=== PATIENT | female | born 2000 | race Caucasian/White ===

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

== ENCOUNTER 2020-11-23 07:49 | Emergency (ER) | payer MEDICARE, OTHER ==
[2020-11-23 07:53] VITALS: TEMP 98
[2020-11-23] MEDS ORDERED: diphenhydrAMINE 50 MG/ML 1 ML VIAL IVP STA ×2 (07:59→08:35)
[2020-11-23] MEDS ORDERED: METOCLOPRAMIDE 5 MG/ML 2 ML VIAL IVP STA (08:00)
--- NOTE | 2020-11-23 08:16 | ED ---
General Adult HPI - General Chief complaint: Headache Stated complaint: headaches Time Seen by Provider: 11/23/20 07:54 Source: patient, RN notes reviewed Mode of arrival: ambulatory Limitations: no limitations - History of Present Illness Initial comments: This is a 20-year-old female presents emergency Department chief complaint of ongoing headaches. She states she's been having almost daily headaches for last several weeks to months. Patient states that they are variant in location she is currently she has bilateral headache. Patient denies any visual disturbances time but she's had some blurred vision, nausea vomiting associated. No neck pain no trauma does not take any current medications. Patient denies any chance - Related Data Home Medications Medication Instructions Recorded Confirmed Acetaminophen [Tylenol Extra 500 mg PO TID PRN 06/03/18 11/23/20 Strength] Allergies Allergy/AdvReac Type Severity Reaction Status Date / Time No Known Allergies Allergy Verified 11/23/20 07:53 Review of Systems ROS Statement: Those systems with pertinent positive or pertinent negative responses have been documented in the HPI. ROS Other: All systems not noted in ROS Statement are negative. Past Medical History Past Medical History: No Reported History History of Any Multi-Drug Resistant Organisms: None Reported Past Surgical History: No Surgical Hx Reported Past Anesthesia/Blood Transfusion Reactions: No Reported Reaction Past Psychological History: No Psychological Hx Reported Smoking Status: Never smoker Past Alcohol Use History: None Reported Past Drug Use History: Marijuana - Past Family History Father Family Medical History: Congestive Heart Failure (CHF), Hypertension Mother Family Medical History: Cancer, Hyperlipidemia, Hypertension General Exam Limitations: no limitations General appearance: alert, in no apparent distress Head exam: Present: atraumatic, normocephalic, normal inspection Eye exam: Present: normal appearance, PERRL, EOMI. Absent: scleral icterus, conjunctival injection, periorbital swelling ENT exam: Present: normal exam, normal oropharynx, mucous membranes moist Neck exam: Present: normal inspection, full ROM. Absent: tenderness, meningismus, lymphadenopathy Respiratory exam: Present: normal lung sounds bilaterally. Absent: respiratory distress, wheezes, rales, rhonchi, stridor Cardiovascular Exam: Present: regular rate, normal rhythm, normal heart sounds. Absent: systolic murmur, diastolic murmur, rubs, gallop, clicks Neurological exam: Present: alert, oriented X3, CN II-XII intact, reflexes normal. Absent: motor sensory deficit Skin exam: Present: warm, dry, intact, normal color. Absent: rash Course Vital Signs 11/23/20 11/23/20 07:50 08:53 Temperature 98.0 F Pulse Rate 61 63 Respiratory 16 18 Rate Blood Pressure 132/80 120/71 O2 Sat by Pulse 98 100 Oximetry Medical Decision Making - Medical Decision Making CT shows some calcification no acute bleed as read by radiologist's. Patient's will follow-up with neurology patient does feel improved after migraine cocktail. Disposition Clinical Impression: Frequent headaches Disposition: HOME SELF-CARE Condition: Stable Instructions (If sedation given, give patient instructions): Acute Headache (ED) Additional Instructions: Please return to the Emergency Department if symptoms worsen or any other concerns. Is patient prescribed a controlled substance at d/c from ED?: No Referrals: None,Stated [Primary Care Provider] - 1-2 days Kayla Gross MD [REFERRING] - 1-2 days Elmer Gonsalez DO [STAFF PHYSICIAN] - 1-2 days Kaleigh Celestin MD [Medical Doctor] - 1-2 days Time of Disposition: 09:23
[2020-11-23] MEDS: KETOROLAC 15 MG/ML 1 ML VIAL IVP STA ×2 (08:17→08:58)
--- NOTE | 2020-11-23 08:19 | CT ---
EXAMINATION TYPE: CT brain wo con DATE OF EXAM: 11/23/2020 COMPARISON: None. HISTORY: Frequent CHANEY CT DLP: 1028.4 mGycm. Automated Exposure Control for Dose Reduction was Utilized. TECHNIQUE: CT scan of the head is performed without contrast. FINDINGS: Curvilinear density left frontal region favors dystrophic calcification possibly from mark te infection is more dense than acute hemorrhage and atypical location and appearance. Clinical corre lation and correlation with old outside imaging would be beneficial if it is present. There is no acu te intracranial hemorrhage, mass effect, or midline shift identified. The ventricles and sulci are within normal limits in size. Mcgee-white matter differentiation is maintained. The globes are intact and the visualized sinuses are clear. IMPRESSION: As above.
[2020-11-23 09:04] VITALS: RESP 18
[2020-11-23 09:31] VITALS: BP 120/74; PULSE 70
== END 2020-11-23 09:30 | disposition home or self-care (01) ==
LOC: EC 07:49
DX: R51.9 Headache, unspecified (principal); F12.90 Cannabis use, unspecified, uncomplicated; Z82.49 Family history of ischemic heart disease and other diseases of the circulatory system; Z83.49 Family history of other endocrine, nutritional and metabolic diseases
CPT/HCPCS: 70450; 99284; J1200; J2765; J1885

== ENCOUNTER → 2021-02-01 | Outpatient (CLI) | payer OTHER ==
--- NOTE | 2021-02-01 18:19 | MR ---
EXAMINATION TYPE: MR brain wo con DATE OF EXAM: 02/01/2021 COMPARISON: None HISTORY: Migraine Multiplanar multiecho imaging of the brain without contrast. Ventricles and sulci appear normal. There is no mass effect nor midline shift. There is no sign of in tracranial hemorrhage. Corpus callosum appears normal. Brainstem is intact. There is no evidence of cerebral edema. Optic ch iasm appears normal. Sella turcica appears normal. Diffusion images show no evidence of an acute infa rct. Mcgee-white matter structures have normal signal pattern. There is no evidence of cerebral edema. IMPRESSION: Normal unenhanced MR scan of the brain.
== END ==
LOC: RADMRIMAIN 10:32
PROVIDERS: ATTEND Psychiatry & Neurology Neurology
DX: G43.909 Migraine, unspecified, not intractable, without status migrainosus (principal)
CPT/HCPCS: 70551

== ENCOUNTER 2021-04-01 10:15 | Emergency (ER) | payer OTHER ==
[2021-04-01] MEDS ORDERED: KETOROLAC 30 MG/ML 1 ML VIAL IVP STA (10:39)
[2021-04-01] MEDS ORDERED: diphenhydrAMINE 50 MG/ML 1 ML VIAL IVP STA (10:39)
[2021-04-01] MEDS ORDERED: ONDANSETRON 4 MG/2 ML VIAL IVP STA (10:39)
[2021-04-01] MEDS ORDERED: SODIUM CHLORIDE 0.9% 1,000 ML IV STA (10:39)
--- NOTE | 2021-04-01 10:42 | ED ---
General Adult HPI - General Chief complaint: Headache Stated complaint: migraine Time Seen by Provider: 04/01/21 10:24 Source: patient Mode of arrival: ambulatory Limitations: no limitations - History of Present Illness Initial comments: Dictation was produced using [employer] dictation software. please excuse any grammatical, word or spelling errors. Chief Complaint: Patient is 20-year-old feel past medical history migraines presents with headaches History of Present Illness: To 20-year-old female she has past medical history of migraine disorder. She sees a headache specialist. Patient states she's been suffering for headache since this morning. Patient gets headaches at least monthly. Her headache she is to be more frequent prior to when she started taking Topamax. Patient denies any obvious stressor or precipitating factor of her headache this time. Patient has been emergency department for headache treatment in the past. She states she's had successful treatment with headache cocktail. Patient denies . Denies any other medical point set this time. She states that the headache starts at her neck and goes all the way to her frontal area. As a numbness and no paresthesias. The ROS documented in this emergency department record has been reviewed and confirmed by me. Those systems with pertinent positive or negative responses have been documented in the HPI. All other systems are other negative and/or noncontributory. PHYSICAL EXAM: General Impression: Alert and oriented x3, not in acute distress HEENT: Normocephalic atraumatic, extra-ocular movements intact, pupils equal and reactive to light bilaterally, mucous membranes moist. Cardiovascular: Heart regular rate and rhythm Chest: Able to complete full sentences, no retractions, no tachypnea Abdomen: abdomen soft, non-tender, non-distended, no organomegaly Musculoskeletal: Pulses present and equal in all extremities, no peripheral edema Motor: no focal deficits noted Neurological: CN II-XII grossly intact, no focal motor or sensory deficits noted Skin: Intact with no visualized rashes Psych: Normal affect and mood ED course: 20 yo well-appearing female with past medical history of migraine disorder presents emergency department for headache. Patient has no high-risk features. She has established diagnosis of migraine disorder. Vital signs upon arrival are within acceptable limits. Chart review was performed per she had an MRI performed in January of last month that was unremarkable. Patient given headache cocktail. Urine. See test is negative. Patient evaluated at bedside at 12:13 PM with almost complete resolution of her headache symptoms. Patient is agreeable for discharge. She is advised follow-up with her headache specialist. - Related Data Home Medications Medication Instructions Recorded Confirmed Topiramate [Topamax] 25 mg PO DAILY 04/01/21 04/01/21 Allergies Allergy/AdvReac Type Severity Reaction Status Date / Time No Known Allergies Allergy Verified 04/01/21 10:57 Review of Systems ROS Statement: Those systems with pertinent positive or pertinent negative responses have been documented in the HPI. ROS Other: All systems not noted in ROS Statement are negative. Past Medical History Past Medical History: No Reported History History of Any Multi-Drug Resistant Organisms: None Reported Past Surgical History: No Surgical Hx Reported Past Anesthesia/Blood Transfusion Reactions: No Reported Reaction Past Psychological History: No Psychological Hx Reported Smoking Status: Never smoker Past Alcohol Use History: None Reported Past Drug Use History: Marijuana - Past Family History Father Family Medical History: Congestive Heart Failure (CHF), Hypertension Mother Family Medical History: Cancer, Hyperlipidemia, Hypertension General Exam Limitations: no limitations Course Vital Signs 04/01/21 04/01/21 10:17 10:42 Temperature 98.5 F 97.4 F L Pulse Rate 53 L 52 L Respiratory 18 14 Rate Blood Pressure 135/74 110/78 O2 Sat by Pulse 97 95 Oximetry Medical Decision Making - Lab Data Lab Results 04/01/21 Range/Units 11:00 Urine HCG, Qual Not Detected (Not Detectd) Disposition Clinical Impression: Migraine Disposition: HOME SELF-CARE Condition: Fair Instructions (If sedation given, give patient instructions): Acute Headache (ED) Is patient prescribed a controlled substance at d/c from ED?: No Referrals: None,Stated [Primary Care Provider] - 1-2 days
[2021-04-01 10:51] VITALS: TEMP 97.4
[2021-04-01 12:26] VITALS: BP 107/61; PULSE 55; RESP 18
== END 2021-04-01 12:26 | disposition home or self-care (01) ==
LOC: EC 10:15
DX: G43.909 Migraine, unspecified, not intractable, without status migrainosus (principal); F12.90 Cannabis use, unspecified, uncomplicated
CPT/HCPCS: 99284; 96374; 96375 ×2; 96361; 81025; J1200; J2405; J1885

== ENCOUNTER → 2021-07-24 | Outpatient (CLI) | payer OTHER ==
--- NOTE | 2021-07-24 08:40 | P.CON ---
Consult Note - . Consult date: 07/24/21 Assessment/Plan:: HISTORY OF PRESENT ILLNESS: 21 yr old female as a referral from Dr Renato Garza presents today with chronic & severe headaches over a course of one year for evaluation. Patient states the pain is 3 out of 10 in intensity, localized in the base of her head and neck region with radiation of throbbing, sharp, shooting pain of the scalp and into the 4 head. Pain escalates as high as 10 out of 10 in intensity when the patient is stressed. Patient states she is a mother to a toddler. Pain is relieved with medications (Motrin OTC, Advil OTC), cannabis use, home stretching regimen, laying supine in a dark and quiet room and rest. Past Medical History: No Reported History Past Surgical History: No Surgical Hx Reported Social History: Never smoker, No ETOH abuse, +Cannabis use. Mother to a toddler daughter. Family History: Father- CHF, HTN. Mother- CA, HTN, Hyperlipidemia All: NKDA Meds: See list REVIEW OF ORGAN SYSTEMS: CONSTITUTIONAL: No fevers or chills. No recent weight loss. HEENT: No visual acuity loss, eye pain, difficulties with hearing. No nosebleeds. No difficulty swallowing. RESPIRATORY: Denies any troubles with breathing or dyspnea on exertion. CARDIOVASCULAR: Denies any chest pain, palpitations, or recent heart attacks. GASTROINTESTINAL: Denies fatty food intolerance. Has change in bowel habits and gas bloat. GENITOURINARY: Denies any blood in urine. Has increased urinary frequency. NEUROLOGICAL: + numbness and tingling along the distal ext remities. No seizure disorders or headaches. MUSCULOSKELETAL: + back pain SKIN: No skin cancer. No rash. PSYCHIATRIC: Denies current depression or suicidal thoughts. ENDOCRINE: Denies current thyroid disorders. Denies any blood sugar glucose intolerance. HEME/LYMPHATIC: Denies any lumps and bumps around the neck. History of deep venous thrombosis. ALLERGY/IMMUNOLOGY: No immunoglobulin therapy. No immune deficiencies. BREAST: Denies current breast lumps, pain or nipple discharge. Physical Examinations : Constitutional : Cooperative , not in acute distress . HEENT: Neck supple. No Lymphadenopathy. Normal thyroid size . +G.O.N. & L.O.N. TTP Eyes no ptosis , no icterus, no photophobia . Hearing intact. Normal oropharynx. No Thrush. Respiratory : Chest clear to auscultations bilaterally. No wheezing. No rhonchi. Cardiovascular : Regular rate and rhythm , S1 / S2. No S3 . No S4. Gastrointestinal : Abdomen soft. No tenderness. Bowel sounds x 4. No organomegaly . Genitourinary : Deferred. Neurologic : Cranial nerve II to XII intact. No focal neurological deficits. Psychiatric : alert & oriented x 3. Matching mood & appropriate affect. Judgment & insight intact. Lymphatic No Lymphadenopathy. Musculoskeletal : Cervical Spine Motor strength in the deltoid and biceps: Normal right side. Normal Left side Motor strength biceps and the wrist extensors: Normal right side . Normal left side Motor strength in the triceps muscle: Normal right side. Normal left side Deep tendon reflexes: Normal at the biceps. Normal at Brachioradialis. Normal at triceps Cervical facet loading test: positive bilaterally Spurling test: positive bilaterally Neck distraction test: positive bilaterally Gene sign: positive bilaterally Lumbar spine Motor strength lower extremities ,thigh and legs 5/5 Right side , 5/5 Left side Deep tendon reflexes : Normal Knee Jerk. Normal Ankle Jerk Vertebral body tenderness over Lumbar facet Loading Test: positive Right / positive Left Range of motion of the lumbar spine Flexion 30 degrees, extension 10 degrees Straight Leg Raise test: Left/ Right positive at degree Mayra test: positive right / positive left. Severe tenderness over the Sacroiliac joint on the Right / Left sides Gaenslen test: positive bilaterally Seated flexion test: positive bilaterally. Imaging: MRI Brain without contrast from 02/01/21 reviewed. Assessment/ Plan : Bilateral occipital neuralgia Recommendation of bilateral occipital nerve blocks. May need a series of injections, up to 3 within a six-month period, for optimal pain relief. Risks, benefits of procedure discussed and patient verbalized understanding. Denies aspirin or anti- coagulant use or medical history of diabetes. All questions answered. I have spent greater than 50 minutes on patient care today. Dr Harrington was available by phone for the evaluation of this patient. The time was used to review the medical records including relevant urine studies and Prescription history (MAPs), review of the available imaging, evaluation and examination of the patient, coordination of care with the medical staff and if applicable referring physicians, as well as creation of the medical record PQRS Measure Charge Sheet PQRS Narrative: Smoking Status Never smoker Home Medications: Ambulatory Orders Topiramate [Topamax] 25 mg PO DAILY 04/01/21
[2021-07-24 08:41] VITALS: BP 140/67; PULSE 57; RESP 18
== END ==
LOC: PNWHC3 08:12
PROVIDERS: ATTEND Specialist
DX: M54.81 Occipital neuralgia (principal)
CPT/HCPCS: 99211

== ENCOUNTER 2021-08-14 10:38 | Day surgery (SDC) | payer OTHER ==
[2021-08-13 09:37] VITALS: BMI 21.1
[~2021-08-14 10:38] MED LIST: LACTATED RINGERS 1,000 ML IV SCH; LIDOCAINE 1% (10MG/ML) FOR IV START INTRADERMA PRN
[2021-08-14 11:02] VITALS: RESP 16; TEMP 97.6
[2021-08-14] MEDS ORDERED: LIDOCAINE 1% (10MG/ML) FOR IV START INTRADERMA ONE (11:03)
[2021-08-14] MEDS ORDERED: methylPREDNISolone ACETATE 40 MG/ML 1 ML VIAL ONE (11:31)
[2021-08-14] MEDS ORDERED: MIDAZOLAM 2 MG/2 ML VIAL ONE (11:31)
[2021-08-14] MEDS ORDERED: fentaNYL (PF) 50 MCG/ML 2 ML AMP ONE (11:31)
[2021-08-14] MEDS ORDERED: ROPIVACAINE 5MG/ML 20ML VIAL ONE (11:31)
--- NOTE | 2021-08-14 11:44 | P.PCN ---
Date of Procedure: 08/14/21 Procedure(s) Performed: Preoperative diagnoses= 1- Greater occipital neuralgia Postoperative diagnoses= same as preoperative diagnosis. Procedure= Bilateral Greater occipital nerve block Anesthesia= moderate sedation with Versed 1 mg and fentanyl 50 micrograms . Estimated blood loss=minimal. Procedure indication= the patient had a history of severe chronic neck pain ,and headache, diagnosed with occipital neuralgia exam was positive for severe tenderness over the occipital nerve bilaterally, she will be a good candidate occipital nerve block, patient failed conservative management Procedure description= the patient was seen and identified in the preoperative holding area, risks and benefits and alternative of the procedure and possible complications discussed with the patient, and he agreed with the preceding, patient signed the consent, an IV was started, and vital signs were monitored a nd were stable throughout the procedure, patient was placed in the sitting position or table and the neck area was prepped and draped with a sterile fashion, vital signs were closely monitored during the procedure, 25-gauge needle advanced 1 inch lateral to the occipital protuberance on the right side, at the location of the right occipital nerve , then after negative aspiration for heme and CSF and there was no paresthesia during the injection, 5 ml of Robivacaine 0.5% and 40 mg of Depo-Medrol injected after negative aspiration, the needle removed, and the entire same procedure was repeated for the left Greater occipital nerve. Patient tolerated the procedure well without any complication, The patient returned to supine position after the back was cleaned and a Band- Aid applied, the patient transported to recovery room in stable condition and he was monitored for 30 minutes before he was discharged home and then patient was reexamined before going home and patient was discharged in stable condition and patient will follow up with the pain clinic in a few weeks.
[2021-08-14] MEDS ORDERED: IV FLUID CONTINUATION 1,000 ML IV ONE (11:51)
[2021-08-14 12:07] VITALS: BP 129/81; PULSE 48
== END 2021-08-14 12:24 | disposition home or self-care (01) ==
LOC: ORPAIN 10:38
PROVIDERS: ATTEND Specialist
DX: M54.81 Occipital neuralgia (principal)
CPT/HCPCS: 64405; 81025; J2250; J1030; J1040; J3010; J2795; 99152

== ENCOUNTER 2021-09-18 09:43 | Day surgery (SDC) | payer OTHER ==
[2021-09-12 14:23] VITALS: BMI 20.7
[2021-09-18] MEDS ORDERED: LACTATED RINGERS 1,000 ML IV SCH (09:45)
[2021-09-18 10:10] VITALS: RESP 16; TEMP 98.2
[2021-09-18] MEDS ORDERED: MIDAZOLAM 2 MG/2 ML VIAL ONE (10:27)
[2021-09-18] MEDS ORDERED: ROPIVACAINE 5 MG/ML 20 ML AMPULE ONE (10:27)
[2021-09-18] MEDS ORDERED: fentaNYL (PF) 50 MCG/ML 2 ML AMP ONE (10:27)
[2021-09-18] MEDS ORDERED: methylPREDNISolone ACETATE 40 MG/ML 1 ML VIAL ONE (10:27)
--- NOTE | 2021-09-18 10:52 | P.PCN ---
Date of Procedure: 09/18/21 Description of Procedure: PREOPERATIVE DIAGNOSIS: Occipital neuralgia, and headaches POSTOPERATIVE DIAGNOSIS: Occipital neuralgia, and headaches PROCEDURES: Bilateral Greater occipital nerve block SURGEON: Heraclio Felipe ANESTHESIA: Local and IV sedation : Versed 1 mg, and fentanyl 50 g. EBL: None. Specimen removed: None PROCEDURE INDICATIONS: This patient with a history of chronic headaches, and occipital neuralgia. Patient had a previous bilateral greater occipital nerve block with good pain relief . Patient had Patient tried conservative therapy. Came here for intervention management. Procedure and Findings: The patient was seen and examined and written informed consent was obtained after explaining the risks, benefits and alternative of the procedure to the patient. As per patient request for anxiety IV was started in the preoperative holding area for sedation. The patient was positioned in the sitting position with the head slightly flexed and forehead rested on a pillow. By palpation, the right side external occipital protuberance and mastoid process were identified and mid point in between was located. The target point for greater occipital nerve was just medial to the occipital artery pulsation. The skin preparation was done with ChloraPrep X2 and sterile technique was observed throughout the procedure. A 25-guage, 1.5 inch needle was used for the procedure. A 25-gauge 1.5 inch needle was placed vertically downward, bony contact was obtained, negative aspiration was confirmed and 8 ml solution was injected. The needle was redirected little medially and laterally in a fanning fashion and addition medication was injected after negative aspiration. The block solution containing 0.5% preservative-free bupivacaine 7 mL +20 MG of Depo-Medrol. The needle was removed,. Entire procedure repeated on the left side . Needle was removed. Needle puncture sites were cleaned and pressure was applied. The patient tolerated the procedure very well. COMPLICATIONS: None. DISPOSITION / PLANS: The patient was placed in a supine position and transferred to the recovery area in a stable condition for observation and was discharged from the recovery room after meeting discharge criteria. Home discharge instructions given to the patient by the staff. The patient was reexamined prior to discharge. The patient will schedule for follow-up visit with the pain clinic in 4 weeks duration
[2021-09-18 11:11] VITALS: BP 103/66; PULSE 47
== END 2021-09-18 11:33 | disposition home or self-care (01) ==
LOC: ORPAIN 09:43
DX: M54.81 Occipital neuralgia (principal); G89.29 Other chronic pain; Z82.49 Family history of ischemic heart disease and other diseases of the circulatory system; Z85.9 Personal history of malignant neoplasm, unspecified
CPT/HCPCS: 81025; 64405; J2250; J1030; J3010; J2795; 99152

== ENCOUNTER → 2021-10-20 | Outpatient (CLI) | payer OTHER ==
[2021-10-20 10:02] VITALS: BP 119/69; PULSE 70; RESP 18; TEMP 97.6
--- NOTE | 2021-10-20 14:18 | P.PAINPG ---
PQRS Measure Charge Sheet Comment: A 21 yr old female with a history of severe and chronic headaches secondary to BL occipital neuralgia presents today for evaluation s/p BL NANDA injections. Pt states she experienced 70% pain relief x 4 weeks s/p procedure. Pain level is currently at 3/10 in intensity, constant, base of neck, throbbing in character w shooting up towards the scalp. Pain is provoked by hyperextension. Pain is alleviated with home based stretching regimen, cool showers and rest. Interventional pain procedures completed include BL ANNDA Patient denies any side effects of the medication(s), denies excessive drowsiness or sleepiness, denies suicidal ideation and reports that the current pain medication is helping to control the pain and improve activities of daily living. Patient denies any motor or sensory deficits. Patient denies any fever or night sweats, denies any change in the bowel movements or urination. Physical Examination: -Constitutional: Cooperative. Not in acute distress . - Neurologic: Cranial nerve II to XII intact. No focal neurological deficits. - Psychatric: Alert & oriented x 3. Matching mood & appropriate affect. Judgment and insight intact. - Musculoskeletal: Cervical spine: +BL NANDA & CODIE TTP Muscle bulk/ tone/ strength in the bilateral upper extremities normal Vertebral body tenderness to palpation over Spurling test positive Distraction test positive Facet loading test positive Thoracic spine Muscle bulk / tone/ strength in the bilateral paraspinal muscles normal Vertebral body tender to palpation over Facet loading test positive Lumbar spine: Motor bulk/ tone/ strength lower extremities , thigh and legs : 5/5 Deep tendon reflexes : Normal Knee Jerk. Normal Ankle Jerk . Vertebral body tenderness to palpation over Lumbar Facet Loading Test positive Straight Leg Raise: positive at 30 degrees right side/ left side Gaenslen's Test positive Sacral spine : Severe tenderness over the Sacroiliac joint: right side / left side Range of motion: Flexion of the lumbar spine <60 degrees Range of motion: Extension of the lumbar spine <20 degrees Gaenslen's Test positive Robert's Test positive Mayra test: positive right side / left side Thigh Thrust Test Sacral Thrust Test Assessment and plan: Chronic low back pain secondary to lumbar degenerative disc disease , lumbar spondylosis with facet arthropathy without myelopathy Recommendation of BL NANDA/CODIE injections. May need a series, up until RFA, for optimal pain relief. Risks, benefits of procedure discussed and pt verbalized understanding. Denies anticoagulant use or medical history of diabetes. All patient questions answered MAPS reviewed and it was appropriate. I have spent less than 30 minutes on patient care today. Dr Harrington was available by phone for the evaluation of this patient. The time was used to review the medical records including relevant urine studies and Prescription history (MAPs), review of the available imaging, evaluation and examination of the patient, coordination of care with the medical staff and if applicable referring physicians, as well as creation of the medical record PQRS Narrative: Smoking Status Never smoker Hx Alcohol Use (MH) No Home Medications: Ambulatory Orders Acetaminophen [Tylenol Extra Strength] 1 dose PO DIRECTED PRN 08/13/21 Clear & Focus Supplement 1 dose PO DAILY 08/13/21 Controlled Substance Measures - Controlled Substance Measures Is patient prescribed a controlled substance at discharge?: No
== END ==
LOC: PNWHC3 09:45
PROVIDERS: ATTEND Specialist
DX: M51.36 Other intervertebral disc degeneration, lumbar region (principal); M47.816 Spondylosis without myelopathy or radiculopathy, lumbar region; G89.29 Other chronic pain
CPT/HCPCS: 99211

== ENCOUNTER 2021-12-02 08:29 | Day surgery (SDC) | payer OTHER ==
[~2021-12-02 08:29] MED LIST changes: -LIDOCAINE 1% (10MG/ML) FOR IV START INTRADERMA PRN
[2021-12-02 08:54] VITALS: TEMP 98.2
[2021-12-02] MEDS ORDERED: methylPREDNISolone ACETATE 40 MG/ML 1 ML VIAL ONE (09:02)
[2021-12-02] MEDS ORDERED: MIDAZOLAM 2 MG/2 ML VIAL ONE (09:02)
[2021-12-02] MEDS ORDERED: ROPIVACAINE 5 MG/ML 20 ML AMPULE ONE (09:02)
[2021-12-02] MEDS ORDERED: fentaNYL (PF) 50 MCG/ML 2 ML AMP ONE (09:02)
[2021-12-02] MEDS ORDERED: IV FLUID CONTINUATION 1,000 ML IV ONE (09:17)
--- NOTE | 2021-12-02 09:23 | P.PCN ---
Date of Procedure: 12/02/21 Description of Procedure: PREOPERATIVE DIAGNOSIS: Occipital neuralgia, and headaches POSTOPERATIVE DIAGNOSIS: Occipital neuralgia, and headaches PROCEDURES: 1. Bilateral -Greater occipital nerve block 2. Bilateral-lesser occipital nerve block SURGEON: Heraclio Felipe ANESTHESIA: Local and IV sedation : Versed 1 mg, and fentanyl 50 g. EBL: None. Specimen removed: None PROCEDURE INDICATIONS: This patient with a history of chronic headaches, and occipital neuralgia. Patient tried conservative therapy. Came here for intervention management. Procedure and Findings: The patient was seen and examined and written informed consent was obtained after explaining the risks, benefits and alternative of the procedure to the patient. As per patient request for anxiety IV was started in the preoperative holding area for sedation. The patient was positioned in the sitting position with the head slightly flexed and forehead rested on a pillow. By palpation, the external occipital protuberance and mastoid process were identified and mid point in between was located. The target point for greater occipital nerve was just medial to the occipital artery pulsation. The skin preparation was done with ChloraPrep X1 and sterile technique was observed throughout the procedure. A 25-guage, 1.5 inch needle was used for the procedure. On the right side A 25-gauge 1.5 inch needle was placed vertically downward, bony contact was obtained, negative aspiration was confirmed and 7 ml of block solution was injected. The needle was redirected little medially and laterally in a fanning fashion and addition medication was injected after negative aspiration. For lesser occipital nerve the target point just lateral to midpoint between occipital protuberance, and mastoid process was identified. Skin cleaned with ChloraPrep X1. Using a 25- gauge 1.5 inch needle placed vertically downwards, bony contact was obtained. After negative aspiration 5 mL of block solution injected in a fanning fashion. Medication was injected with intermittent negative aspiration. The block solution containing 0.5% preservative-free ropivacaine 11.5 mL + 20 mg of Depo- Medrol. Needle was removed, needle puncture sites was cleaned. Entire procedure was repeated on the left side . The needle was removed, needle puncture site was cleaned and pressure was applied. The patient tolerated the procedure very well. COMPLICATIONS: None. DISPOSITION / PLANS: The patient was placed in a supine position and transferred to the recovery area in a stable condition for observation and was discharged from the recovery room after meeting discharge criteria. Home discharge instructions given to the patient by the staff. The patient was reexamined prior to discharge. The patient will schedule for follow-up visit with the pain clinic in 4 weeks duration
[2021-12-02 09:40] VITALS: BP 112/59; PULSE 57; RESP 20
== END 2021-12-02 09:47 | disposition home or self-care (01) ==
LOC: ORPAIN 08:29
PROVIDERS: ATTEND Specialist
DX: M54.81 Occipital neuralgia (principal); G43.909 Migraine, unspecified, not intractable, without status migrainosus; F41.9 Anxiety disorder, unspecified; F17.210 Nicotine dependence, cigarettes, uncomplicated
CPT/HCPCS: 81025; 64405; 64450; J2250; J1030; J3010; J2795

== ENCOUNTER 2022-03-10 12:08 | Day surgery (SDC) | payer OTHER ==
[2022-02-13 13:40] VITALS: BMI 21.1
[2022-03-10 12:33] VITALS: TEMP 97.8
[2022-03-10] MEDS ORDERED: MIDAZOLAM 2 MG/2 ML VIAL ONE (12:57)
[2022-03-10] MEDS ORDERED: fentaNYL (PF) 50 MCG/ML 2 ML AMP ONE (12:57)
[2022-03-10] MEDS ORDERED: methylPREDNISolone ACETATE 80 MG/ML 1 ML VIAL ONE (12:57)
[2022-03-10] MEDS ORDERED: ROPIVACAINE 5 MG/ML 20 ML AMPULE ONE (12:57)
--- NOTE | 2022-03-10 13:07 | P.PCN ---
Date of Procedure: 03/10/22 Procedure(s) Performed: Preoperative diagnoses= 1- Greater occipital neuralgia. 2-cervicogenic headache. 3-cervical spondylosis Postoperative diagnoses= same as preoperative diagnosis. Procedure= Bilateral Greater occipital nerve block Anesthesia= moderate sedation with Versed 1 mg and fentanyl 50 micrograms . sedation was started at 13:00, end 13:05 Estimated blood loss=minimal. Procedure indication= the patient had a history of severe chronic neck pain ,and headache, diagnosed with occipital neuralgia exam was positive for severe tenderness over the occipital nerve bilaterally, she will be a good candidate occipital nerve block, patient failed conservative management Procedure description= the patient was seen and identified in the preoperative holding area, risks and benefits and alternative of the procedure and possible complications discussed with the patient, and he agreed with the preceding, patient signed the consent, an IV was started, and vital signs were monitored and were stable throughout the procedure, patient was placed in the sitting p osition or table and the neck area was prepped and draped with a sterile fashion, vital signs were closely monitored during the procedure, 25-gauge needle advanced 1 inch lateral to the occipital protuberance on the right side, at the location of the right occipital nerve , then after negative aspiration for heme and CSF and there was no paresthesia during the injection, 5 ml of Robivacaine 0.5% and 40 mg of Depo-Medrol injected after negative aspiration, the needle removed, and the entire same procedure was repeated for the left Greater occipital nerve. Patient tolerated the procedure well without any complication, The patient returned to supine position after the back was cleaned and a Band- Aid applied, the patient transported to recovery room in stable condition and he was monitored for 30 minutes before he was discharged home and then patient was reexamined before going home and patient was discharged in stable condition and patient will follow up with the pain clinic in a few weeks.
[2022-03-10] MEDS ORDERED: IV FLUID CONTINUATION 900 ML IV ONE (13:10)
[2022-03-10 13:16] VITALS: RESP 16
[2022-03-10 13:29] VITALS: BP 121/58; PULSE 58
== END 2022-03-10 13:38 | disposition home or self-care (01) ==
LOC: ORPAIN 12:08
PROVIDERS: ATTEND Specialist
DX: M54.81 Occipital neuralgia (principal); M47.812 Spondylosis without myelopathy or radiculopathy, cervical region; G44.86 Cervicogenic headache
CPT/HCPCS: 81025; 64405; J2250; J1040; J3010; J2795

== ENCOUNTER → 2022-03-30 | Outpatient (CLI) | payer OTHER ==
[2022-03-30 09:43] VITALS: BP 119/81; PULSE 69; RESP 18; TEMP 97.9
--- NOTE | 2022-03-30 10:14 | XR ---
EXAMINATION TYPE: XR cervical spine limited DATE OF EXAM: 03/30/2022 10:05 AM INDICATION: Patient age:Female; 21 years old; Reason for study: M54.2 cervicalgia; [facility]. COMPARISON: None TECHNIQUE: The cervical spine was imaged in frontal, lateral, and odontoid projections. FINDINGS: The osseous structures show normal alignment without evidence of an acute fracture. No radiographic e vidence for degenerative disc disease. The intervertebral disk spaces are preserved. Pedicles are in tact. Soft tissues are within normal limits. The odontoid appears intact. IMPRESSION: No fracture or dislocation.
--- NOTE | 2022-03-30 15:22 | P.PAINPG ---
PQRS Measure Charge Sheet Comment: A 21 yr old female with a history of severe and chronic neck pain secondary to occipital neuralgia and cervicogenic headache presents today for evaluation s/p BL NANDA injections. Pt states she experienced 30 % pain relief x 2-3 wks s/p procedure. Pain level is provoked at 6 /10 in intensity, constant, localized in the cervical spine, pressure in character w shooting towards the scalp. Pain is provoked by hyperextension, rotation, lateral flexion. Pain is alleviated with medications, squeezing head pressure, laying supine, dark room, crouching and rest. Interventional pain procedures completed include BL NANDA injections Patient is currently on Tyl Patient denies any side effects of the medication(s), denies excessive drowsiness or sleepiness, denies suicidal ideation and reports that the current pain medication is helping to control the pain and improve activities of daily living. Patient denies any motor or sensory deficits. Patient denies any fever or night sweats, denies any change in the bowel movements or urination. Physical Examination: -Constitutional: Cooperative. Not in acute distress . - Neurologic: Cranial nerve II to XII intact. No focal neurological deficits. - Psychatric: Alert & oriented x 3. Matching mood & appropriate affect. Judgment and insight intact. - Musculoskeletal: Cervical spine: Muscle bulk/ tone/ strength in the bilateral upper extremities normal Vertebral body tenderness to palpation over C2-C3, C3-C4 facets Spurling test positive Distraction test positive Facet loading test positive Thoracic spine Muscle bulk / tone/ strength in the bilateral paraspinal muscles normal Vertebral body tender to palpation over Facet loading test positive Lumbar spine: Motor bulk/ tone/ strength lower extremities , thigh and legs : 5/5 Deep tendon reflexes : Normal Knee Jerk. Normal Ankle Jerk . Vertebral body tenderness to palpation over Lumbar Facet Loading Test positive Straight Leg Raise: positive at 30 degrees right side/ left side Gaenslen's Test positive Sacral spine : Severe tenderness over the Sacroiliac joint: right side / left side Range of motion: Flexion of the lumbar spine <60 degrees Range of motion: Extension of the lumbar spine <20 degrees Gaenslen's Test positive Mayra test: positive right side / left side Thigh Thrust Test Sacral Thrust Test Assessment and plan: Chronic neck pain secondary to occipital neuralgia and cervicogenic headache Recommendation of x ray of the cervical spine re: M54.2. May need additional testing if indicated. Return to clinic within 2-4 wks. All patient questions answered I have spent less than 30 minutes on patient care today. Dr Harrington was available by phone for the evaluation of this patient. The time was used to review the medical records including relevant urine studies and Prescription history (MAPs), review of the available imaging, evaluation and examination of the patient, coordination of care with the medical staff and if applicable referring physicians, as well as creation of the medical record PQRS Narrative: Smoking Status Never smoker Hx Alcohol Use (MH) No Home Medications: Ambulatory Orders Acetaminophen Tab [Tylenol] 325 mg PO DIRECTED PRN 03/05/22 Ibuprofen [Motrin Ib] 400 - 600 mg PO DIRECTED PRN 03/05/22 Controlled Substance Measures - Controlled Substance Measures Is patient prescribed a controlled substance at discharge?: No
== END ==
LOC: PNWHC3 09:18
PROVIDERS: ATTEND Specialist
DX: M54.81 Occipital neuralgia (principal); G44.86 Cervicogenic headache
CPT/HCPCS: 72040; G0463; 99211

== ENCOUNTER → 2022-06-04 | Outpatient (CLI) | payer OTHER ==
[2022-06-04 14:30] VITALS: BP 106/67; PULSE 65; RESP 18; TEMP 97.9
--- NOTE | 2022-06-04 14:30 | P.PAINPG ---
PQRS Measure Charge Sheet Comment: A 21 yr old female with a history of severe and chronic neck pain secondary to cervicogenic CHANEY and occipital neuralgia presents today for evaluation of MRI results. Pain level is provoked at 0/10 in intensity. Pain is provoked by hyperextension. Pain is alleviated with medications (Tyl), THC products, inj ections, repositioning and rest. Interventional pain procedures completed include BL NANDA injections Patient is currently on Tyl Patient denies any side effects of the medication(s), denies excessive drowsiness or sleepiness, denies suicidal ideation and reports that the current pain medication is helping to control the pain and improve activities of daily living. Patient denies any motor or sensory deficits. Patient denies any fever or night sweats, denies any change in the bowel movements or urination. Physical Examination: -Constitutional: Cooperative. Not in acute distress . - Neurologic: Cranial nerve II to XII intact. No focal neurological deficits. - Psychatric: Alert & oriented x 3. Matching mood & appropriate affect. Judgment and insight intact. - Musculoskeletal: Cervical spine: Muscle bulk/ tone/ strength in the bilateral upper extremities normal Vertebral body tenderness to palpation over Spurling test positive Distraction test positive Facet loading test positive TTP Thoracic spine Muscle bulk / tone/ strength in the bilateral paraspinal muscles normal Vertebral body tender to palpation over Facet loading test positive TTP Lumbar spine: Motor bulk/ tone/ strength lower extremities , thigh and legs : 5/5 Deep tendon reflexes : Normal Knee Jerk. Normal Ankle Jerk . Vertebral body tenderness to palpation over Lumbar Facet Loading Test positive Straight Leg Raise: positive at 30 degrees right side/ left side Gaenslen's Test positive Sacral spine : Severe tenderness over the Sacroiliac joint: right side / left side Range of motion: Flexion of the lumbar spine <60 degrees Range of motion: Extension of the lumbar spine <20 degrees Gaenslen's Test positive R / L Mayra test: positive right side / left side Thigh Thrust Test positive R / L Sacral Thrust Test positive R/ L Imaging: MRI without contrast of the cervical spine from 05/13/22 reviewed Assessment and plan: Chronic neck pain secondary to cervical DDD, spondylosis with facet arthropathy without myelopathy No intervention is needed at this time. All questions answered. I have spent less than 30 minutes on patient care today. Dr Harrington was available by phone for the evaluation of this patient. The time was used to review the medical records including relevant urine studies and Prescription history (MAPs), review of the available imaging, evaluation and examination of the patient, coordination of care with the medical staff and if applicable referring physicians, as well as creation of the medical record PQRS Narrative: Smoking Status Never smoker Hx Alcohol Use (MH) No Home Medications: Ambulatory Orders Acetaminophen Tab [Tylenol] 325 mg PO DIRECTED PRN 03/05/22 Ibuprofen [Motrin Ib] 400 - 600 mg PO DIRECTED PRN 03/05/22 Controlled Substance Measures - Controlled Substance Measures Is patient prescribed a controlled substance at discharge?: No
== END ==
LOC: PNWHC3 13:55
PROVIDERS: ATTEND Specialist
DX: M50.30 Other cervical disc degeneration, unspecified cervical region (principal); M47.812 Spondylosis without myelopathy or radiculopathy, cervical region; G89.29 Other chronic pain
CPT/HCPCS: 99211